=== PATIENT | female | born 1950 | race American Indian/Alaskan Native ===

== ENCOUNTER → 2023-07-21 12:09 | Outpatient (REF) | payer MEDICARE, OTHER, SELFPAY ==
[2023-07-21 13:08] LABS: % Basophils 0.3 % (0-2); % Eosinophils 0.9 % (0-6); % Immature Granulocytes 0.2 % (0-0.5); % Lymphocytes 25.9 % (20.5-51.1); % Monocytes 7.8 % (1.7-9.3); % Neutrophils 64.9 % (42.2-75.2); Absolute Eosinophils 0.1 10^3/uL (0-0.7); Absolute Lymphocytes 2.3 10^3/uL (1.2-3.4); Absolute Monocytes 0.7 10^3/uL (0.1-0.6); Absolute Neutrophils 5.7 10^3/uL (1.4-6.5); Hematocrit 37.8 % (37.0-47.0); Hemoglobin 12.3 g/dL (12.0-16.0); Mean Corp Hgb Conc. 32.5 g/dL (33.0-37.0); Mean Corpuscular Hgb 31.6 pg (27.0-31.0); Mean Corpuscular Volume 97.2 fL (81.0-99.0); Mean Platelet Volume 10.8 fL (7.4-10.4); Nucleated Red Blood Cells % 0 %; Platelet Count 282 10^3/uL (130-400); Red Blood Cell Count 3.89 10^6/uL (4.20-5.40); Red Cell Dist. Width 14.7 % (11.5-14.5); White Blood Cell Count 8.8 10^3/uL (4.8-10.8)
[2023-07-21 13:27] LABS: ALT (SGPT) 75 U/L (0-35); AST (SGOT) 65 U/L (14-36); Albumin 4.1 g/dl (3.5-5.0); Alkaline Phosphatase 136 U/L (38-126); Blood Urea Nitrogen 74 mg/dl (7-17); Calcium 9.6 mg/dl (8.4-10.2); Carbon Dioxide 23 mmol/L (22-30); Chloride 102 mmol/L (98-107); Glucose 122 mg/dl (70-99); HDL Cholesterol 30 mg/dl; LDL Cholesterol, Calculated 51 mg/dl; Potassium 4.1 mmol/L (3.5-5.1); Sodium 134 mmol/L (135-145); Total Bilirubin 0.6 mg/dl (0.2-1.3); Total Cholesterol 108 mg/dl (50-199); Total Protein 6.3 g/dl (6.3-8.2); Triglyceride 138 mg/dl (10-149); Very Low Density Lipoprotein 27 mg/dl (0-30); eGFR 18.78
[2023-07-21 13:43] LABS: Free T4 1.73 ng/dl (0.78-2.19)
[2023-07-21 13:57] LABS: TSH 0.79 uIU/ml (0.47-4.68)
[2023-07-21 14:07] LABS: Glycohemoglobin (HgbA1c) 6.1 % (4.0-5.6)
== END ==
LOC: REG 12:09
PROVIDERS: ATTENDING PHYSICIAN Physician Assistant; FAMILY PHYSICIAN Family Medicine
DX: E11.9 Type 2 diabetes mellitus without complications (principal); E03.9 Hypothyroidism, unspecified
CPT/HCPCS: 36415; 80053; 80061; 83036; 84439; 84443; 85025

== ENCOUNTER → 2024-01-04 11:14 | Outpatient (REF) | payer MEDICARE, OTHER, SELFPAY ==
[2024-01-04 12:11] LABS: % Basophils 0.3 % (0-2); % Eosinophils 1.2 % (0-6); % Immature Granulocytes 0.4 % (0-0.5); % Lymphocytes 29.8 % (20.5-51.1); % Monocytes 9.6 % (1.7-9.3); % Neutrophils 58.7 % (42.2-75.2); Absolute Eosinophils 0.1 10^3/uL (0-0.7); Absolute Lymphocytes 2.3 10^3/uL (1.2-3.4); Absolute Monocytes 0.7 10^3/uL (0.1-0.6); Absolute Neutrophils 4.5 10^3/uL (1.4-6.5); Hematocrit 34.5 % (37.0-47.0); Hemoglobin 11.3 g/dL (12.0-16.0); Mean Corp Hgb Conc. 32.8 g/dL (33.0-37.0); Mean Corpuscular Hgb 31.3 pg (27.0-31.0); Mean Corpuscular Volume 95.6 fL (81.0-99.0); Nucleated Red Blood Cells % 0 %; Platelet Count 249 10^3/uL (130-400); Red Blood Cell Count 3.61 10^6/uL (4.20-5.40); Red Cell Dist. Width 14.8 % (11.5-14.5); White Blood Cell Count 7.6 10^3/uL (4.8-10.8)
[2024-01-04 12:34] LABS: ALT (SGPT) 42 U/L (0-35); AST (SGOT) 40 U/L (14-36); Albumin 3.9 g/dl (3.5-5.0); Alkaline Phosphatase 117 U/L (38-126); Blood Urea Nitrogen 102 mg/dl (7-17); Carbon Dioxide 25 mmol/L (22-30); Chloride 101 mmol/L (98-107); Glucose 119 mg/dl (70-99); Potassium 4.9 mmol/L (3.5-5.1); Sodium 137 mmol/L (135-145); Total Bilirubin 0.5 mg/dl (0.2-1.3); Total Protein 5.8 g/dl (6.3-8.2); eGFR 16.48
[2024-01-04 12:46] LABS: Glycohemoglobin (HgbA1c) 5.4 % (4.0-5.6)
[2024-01-04 14:14] LABS: Free T4 1.68 ng/dl (0.78-2.19)
[2024-01-04 14:28] LABS: TSH 0.56 uIU/ml (0.47-4.68)
== END ==
LOC: REG 11:14
PROVIDERS: ATTENDING PHYSICIAN Physician Assistant; FAMILY PHYSICIAN Family Medicine
DX: E11.65 Type 2 diabetes mellitus with hyperglycemia (principal); Z79.4 Long term (current) use of insulin; E03.9 Hypothyroidism, unspecified
CPT/HCPCS: 36415; 80053; 83036; 84439; 84443; 85025

== ENCOUNTER 2024-02-10 08:11 | Emergency (ER) | payer MEDICARE, OTHER, SELFPAY ==
[2024-02-10 08:20] VITALS: BP 110/65
--- NOTE | 2024-02-10 08:41 | ED.GENMED ---
History of Present Illness
General
Chief Complaint: Skin Surface Trauma
Source: patient
Time Seen by Provider: 02/10/24 08:27
History of Present Illness
History of Present Illness:
74-year-old female with past medical history of atrial fibrillation, CHF, hypertension, hyperlipidemia, insulin-dependent diabetes presenting to the emergency department for evaluation after she raised her left forearm danced a door about 1 week
ago, had been treating the wound at home but early this morning awoke noticing bleeding from the small wound to the left forearm which she states is continued bleeding prompting her to come to the ER today. Patient is on Eliquis due to her A-fib.
She states she is not sure why the areas of bleeding. Denies any new injuries. Tetanus vaccine is up-to-date. Patient denies any redness, fevers or infectious symptoms or any other concerns presently.
Past History
Past History
ED Past Medical History: CHF, COPD, Fibromyalgia, HTN, Hypercholesterolemia, NIDDM, Renal failure, Hypothyroidism and Other (pulmonary htn, lupus (in remission as of september 2011), numbness and tingling of the extremities, home oxygen)
ED Past Surgical History: Orthopedic and Other (History of hysterectomy, bladder sling surgery, partial last, breast augmentation, D&C x3.)
Social History
Tobacco: Non-smoker
Alcohol: None
Drug: None
Personal:
Living: alone
Employment: Not employed
Family History
Family History: Other (She states both her father and her brother are alcoholics)
Review of Systems
Review of Systems
All Other Systems: ROS reviewed and negative except as documented in HPI and ROS
Phy Exam
Physical Exam
Physical Exam:
GENERAL: Alert , in no apparent distress
EYE: conjunctiva clear
Head: Normocephalic atraumatic
NECK: Supple,
ENT: mmm.
LUNGS: no acute respiratory distress
NEUROLOGICAL: Alert and oriented
SKIN: Warm and dry, small puncture wound to the dorsal surface of the left forearm. There is large dressing in place that was made up with paper towels, tape and gauze pads. This was removed and patient had a small blood blister formed. This was
irrigated and did start using but was controlled with light pressure. Extremities otherwise warm well-perfused and neurovascularly intact
MUSCULOSKELETAL: well perfused.
PSYCH: Normal and appropriate interaction.
Scores
Heart Failure Risk
Heart Failure Risk Score: Not Applicable
Heart Score for Chest Pain Patients
STEMI patient?: Not applicable
Withdrawal Assessment of Alcohol
Withdrawal Assessment Completed?: Not applicable
Course
Vital Signs
Initial and Last Documented VS:
Initial Vital Signs
Temp Pulse Resp BP Pulse Ox
97.4 F 98 16 110/65 97
02/10/24 08:20 02/10/24 08:20 02/10/24 08:20 02/10/24 08:20 02/10/24 08:20
Last Documented Vital Signs
Temp Pulse Resp BP Pulse Ox
97.4 F 98 16 110/65 97
02/10/24 08:20 02/10/24 08:20 02/10/24 08:20 02/10/24 08:20 02/10/24 08:20
MDM/Problems Addressed
Differential Diagnosis Includes:
Superficial abrasion/laceration, bleeding secondary to Eliquis, no current signs to suggest infectious etiology
MDM/Problems Addressed:
74-year-old female presenting to the emergency department for evaluation of a wound to the left forearm. Left forearm started bleeding/oozing overnight. Laceration from 1 week ago. No current signs of infection. Possible patient may have
scratched or braised the forearm while sleeping causing bleeding. Bleeding well-controlled with light pressure. I placed Gelfoam and a nonadherent gauze pad over this and wrapped with Kerlix and Carine wrap. Bleeding well-controlled. Advised
patient leave dressing in place. Attempt to not get wet. Information for wound care center provided. Otherwise stable for discharge home.
*Pulse Oximetry
Patient hypoxic: no
*Critical Care Note
Total Time (30-74mins, 75-104mins- exclusive of procedures): Not Applicable
ED Attending Note
-
Portions of this chart may have been created with voice recognition software.� Occasional wrong word or��sound alike� substitutions may have occurred due to the inherent limitations of voice recognition software.
Discharge Plan
Departure
Patient Disposition: Home (Routine Discharge)
Date of Disposition: 02/10/24
Time of Disposition: 08:41
Patient with high blood pressure during this ER visit?: No
Discharge Problem:
Wound of left upper extremity
Instructions: Wound Care (DC)
Prescriptions:
No Action
amitriptyline 50 MG tablet
100 mg PO HS
pantoprazole 40 MG tablet,delayed release (DR/EC)
40 mg PO BID@0600,1600
meclizine 25 MG tablet
25 mg PO TID PRN (Reason: dizziness)
levothyroxine 137 MCG tablet
137 mcg PO DAILY
acetaminophen 325 MG tablet
650 mg PO Q6HPRN PRN (Reason: mild pain,temp>101)
cyanocobalamin (vitamin B-12) [Vitamin B-12] 2,500 MCG tablet, sublingual
5,000 mcg sublingual DAILY
albuterol sulfate 1 PUFF HFA aerosol inhaler
2 puff inhalation R BID@0800,1600
spironolactone 12.5 MG tablet
50 mg PO BID
Eliquis 2.5 MG tablet
2.5 mg PO BID@0800,1700 Qty: 28 0RF
furosemide [Lasix] 80 MG tablet
80 mg PO TID
atorvastatin [Lipitor] 40 mg Tablet
40 mg PO DAILY
ondansetron 8 mg Tablet,Disintegrating
8 mg PO Q8H PRN (Reason: nausea)
acetaminophen 325 mg Tablet
650 mg PO Q4HPRN PRN (Reason: mild pain/BUSTILLOS/temp> 100.4F) Qty: 1 0RF
moxifloxacin 400 mg tablet
400 mg PO DAILY 7 Days Qty: 7 0RF
Rx Instructions:
first dose tonight
docusate sodium 100 MG capsule
100 mg PO BID@0800,1600 Qty: 1 0RF
Rx Instructions:
resume once diarrhea settles
insulin glargine [Basaglar KwikPen U-100 Insulin] 100 unit/mL (3 mL) Insulin Pen
35 unit SC BID Qty: 0 0RF
Rx Instructions:
Dose decreased as moxifloxacin can decrease your blood sugars. Call MD if any low sugars <110
Referrals:
Wound Care Center [Outside]
Discharge Date and Time
Print Language: PASHTO
[2024-02-10 08:53] VITALS: BMI 31.3
[2024-02-10 09:34] VITALS: BP 112/65
== END 2024-02-10 09:35 | disposition home or self-care (01) ==
LOC: EMR 08:11
PROVIDERS: EMERGENCY PHYSICIAN Emergency Medicine; FAMILY PHYSICIAN Family Medicine
DX: S51.802A Unspecified open wound of left forearm, initial encounter (principal); W22.09XA Striking against other stationary object, initial encounter; I13.0 Hypertensive heart and chronic kidney disease with heart failure and stage 1 through stage 4 chronic kidney disease, or unspecified chronic kidney disease; N18.9 Chronic kidney disease, unspecified; I50.9 Heart failure, unspecified; E11.22 Type 2 diabetes mellitus with diabetic chronic kidney disease; I48.91 Unspecified atrial fibrillation; Z79.01 Long term (current) use of anticoagulants
CPT/HCPCS: 99282

== ENCOUNTER → 2024-05-09 09:37 | Outpatient (REF) | payer MEDICARE, OTHER, SELFPAY ==
[2024-05-09 11:40] LABS: % Basophils 0.4 % (0-2); % Eosinophils 0.7 % (0-6); % Immature Granulocytes 0.4 % (0-0.5); % Lymphocytes 25.8 % (20.5-51.1); % Monocytes 7.3 % (1.7-9.3); % Neutrophils 65.4 % (42.2-75.2); Absolute Eosinophils 0.1 10^3/uL (0-0.7); Absolute Lymphocytes 2.2 10^3/uL (1.2-3.4); Absolute Monocytes 0.6 10^3/uL (0.1-0.6); Absolute Neutrophils 5.5 10^3/uL (1.4-6.5); Hematocrit 40.3 % (37.0-47.0); Hemoglobin 12.5 g/dL (12.0-16.0); Mean Corpuscular Hgb 31.3 pg (27.0-31.0); Mean Corpuscular Volume 100.8 fL (81.0-99.0); Mean Platelet Volume 10.4 fL (7.4-10.4); Nucleated Red Blood Cells % 0 %; Platelet Count 290 10^3/uL (130-400); Red Cell Dist. Width 14.5 % (11.5-14.5); White Blood Cell Count 8.4 10^3/uL (4.8-10.8)
[2024-05-09 11:59] LABS: ALT (SGPT) 100 U/L (0-35); AST (SGOT) 83 U/L (14-36); Albumin 4.3 g/dl (3.5-5.0); Alkaline Phosphatase 140 U/L (38-126); Blood Urea Nitrogen 44 mg/dl (7-17); Carbon Dioxide 26 mmol/L (22-30); Chloride 101 mmol/L (98-107); Free T4 1.49 ng/dl (0.78-2.19); Glucose 121 mg/dl (70-99); HDL Cholesterol 30 mg/dl; LDL Cholesterol, Calculated 67 mg/dl; Potassium 3.9 mmol/L (3.5-5.1); Sodium 144 mmol/L (135-145); Total Bilirubin 0.5 mg/dl (0.2-1.3); Total Cholesterol 118 mg/dl (50-199); Total Protein 6.7 g/dl (6.3-8.2); Triglyceride 107 mg/dl (10-149); Very Low Density Lipoprotein 21 mg/dl (0-30); eGFR 33.42
[2024-05-09 12:14] LABS: TSH 0.24 uIU/ml (0.47-4.68)
[2024-05-10 10:38] LABS: Glycohemoglobin (HgbA1c) 5.1 % (4.0-5.6)
== END ==
LOC: REG 09:37
PROVIDERS: ATTENDING PHYSICIAN Physician Assistant; FAMILY PHYSICIAN Family Medicine
DX: E11.65 Type 2 diabetes mellitus with hyperglycemia (principal); E03.9 Hypothyroidism, unspecified; N18.4 Chronic kidney disease, stage 4 (severe); D63.1 Anemia in chronic kidney disease; I50.32 Chronic diastolic (congestive) heart failure; I12.9 Hypertensive chronic kidney disease with stage 1 through stage 4 chronic kidney disease, or unspecified chronic kidney disease; E78.2 Mixed hyperlipidemia
CPT/HCPCS: 36415; 80053; 80061; 83036; 84439; 84443; 85025

== ENCOUNTER → 2024-07-26 09:44 | Outpatient (REF) | payer MEDICARE, OTHER, SELFPAY ==
[2024-07-26 10:39] LABS: % Basophils 0.3 % (0-2); % Eosinophils 0.5 % (0-6); % Immature Granulocytes 0.4 % (0-0.5); % Lymphocytes 17.8 % (20.5-51.1); Absolute Eosinophils 0.1 10^3/uL (0-0.7); Absolute Lymphocytes 1.7 10^3/uL (1.2-3.4); Absolute Monocytes 0.7 10^3/uL (0.1-0.6); Hematocrit 38.1 % (37.0-47.0); Hemoglobin 12.1 g/dL (12.0-16.0); Mean Corp Hgb Conc. 31.8 g/dL (33.0-37.0); Mean Corpuscular Hgb 28.9 pg (27.0-31.0); Mean Corpuscular Volume 90.9 fL (81.0-99.0); Mean Platelet Volume 10.4 fL (7.4-10.4); Nucleated Red Blood Cells % 0 %; Platelet Count 298 10^3/uL (130-400); Red Blood Cell Count 4.19 10^6/uL (4.20-5.40); Red Cell Dist. Width 15.6 % (11.5-14.5); White Blood Cell Count 9.5 10^3/uL (4.8-10.8)
[2024-07-26 10:50] LABS: ALT (SGPT) 34 U/L (0-35); AST (SGOT) 33 U/L (14-36); Albumin 3.8 g/dl (3.5-5.0); Alkaline Phosphatase 154 U/L (38-126); Blood Urea Nitrogen 45 mg/dl (7-17); Calcium 9.3 mg/dl (8.4-10.2); Carbon Dioxide 29 mmol/L (22-30); Chloride 98 mmol/L (98-107); Glucose 132 mg/dl (70-99); Potassium 3.7 mmol/L (3.5-5.1); Sodium 137 mmol/L (135-145); Total Bilirubin 0.7 mg/dl (0.2-1.3); eGFR 31.08
[2024-07-26 11:05] LABS: Free T4 1.85 ng/dl (0.78-2.19)
[2024-07-26 12:17] LABS: Glycohemoglobin (HgbA1c) 5.7 % (4.0-5.6)
== END ==
LOC: REG 09:44
PROVIDERS: ATTENDING PHYSICIAN Physician Assistant; FAMILY PHYSICIAN Family Medicine; REFERRING PHYSICIAN Specialist
DX: E11.65 Type 2 diabetes mellitus with hyperglycemia (principal); E03.9 Hypothyroidism, unspecified
CPT/HCPCS: 36415; 80053; 83036; 84439; 84443; 85025

== ENCOUNTER → 2024-09-19 09:29 | Outpatient (REF) | payer MEDICARE, OTHER, SELFPAY ==
[2024-09-19 10:17] LABS: % Basophils 0.4 % (0-2); % Eosinophils 0.5 % (0-6); % Immature Granulocytes 0.5 % (0-0.5); % Lymphocytes 21.9 % (20.5-51.1); % Monocytes 8.8 % (1.7-9.3); % Neutrophils 67.9 % (42.2-75.2); Absolute Eosinophils 0.1 10^3/uL (0-0.7); Absolute Immature Granulocytes 0.1 10^3/uL (0-0.05); Absolute Lymphocytes 2.1 10^3/uL (1.2-3.4); Absolute Monocytes 0.8 10^3/uL (0.1-0.6); Absolute Neutrophils 6.4 10^3/uL (1.4-6.5); Hematocrit 36.3 % (37.0-47.0); Hemoglobin 11.6 g/dL (12.0-16.0); Mean Corpuscular Hgb 28.3 pg (27.0-31.0); Mean Corpuscular Volume 88.5 fL (81.0-99.0); Mean Platelet Volume 10.3 fL (7.4-10.4); Nucleated Red Blood Cells % 0 %; Platelet Count 268 10^3/uL (130-400); Red Cell Dist. Width 18.2 % (11.5-14.5); White Blood Cell Count 9.4 10^3/uL (4.8-10.8)
[2024-09-19 11:02] LABS: NT-proBNP 129 pg/ml
[2024-09-19 11:06] LABS: ALT (SGPT) 50 U/L (0-35); AST (SGOT) 43 U/L (14-36); Alkaline Phosphatase 138 U/L (38-126); Blood Urea Nitrogen 39 mg/dl (7-17); Calcium 9.8 mg/dl (8.4-10.2); Carbon Dioxide 28 mmol/L (22-30); Chloride 100 mmol/L (98-107); Glucose 126 mg/dl (70-99); Phosphorus 2.9 mg/dl (2.5-4.5); Potassium 3.7 mmol/L (3.5-5.1); Sodium 141 mmol/L (135-145); Total Bilirubin 0.8 mg/dl (0.2-1.3); Total Protein 5.9 g/dl (6.3-8.2); eGFR 36.12
[2024-09-19 11:10] LABS: Free T4 1.57 ng/dl (0.78-2.19)
[2024-09-19 11:33] LABS: TSH 0.52 uIU/ml (0.47-4.68)
[2024-09-20 10:36] LABS: Intact PTH 240.2 pg/ml (13.6-85.8)
== END ==
LOC: REG 09:29
PROVIDERS: ATTENDING PHYSICIAN Physician Assistant; FAMILY PHYSICIAN Family Medicine; REFERRING PHYSICIAN Specialist
DX: E11.65 Type 2 diabetes mellitus with hyperglycemia (principal); E03.9 Hypothyroidism, unspecified; N18.4 Chronic kidney disease, stage 4 (severe); I10 Essential (primary) hypertension; I50.32 Chronic diastolic (congestive) heart failure
CPT/HCPCS: 36415; 80053; 83036; 83880; 83970; 84100; 84439; 84443; 85025

== ENCOUNTER → 2024-10-04 09:03 | Outpatient (REF) | payer MEDICARE, OTHER, SELFPAY | LOC: RAD 09:03 | PROVIDERS: ATTENDING PHYSICIAN Family Medicine; FAMILY PHYSICIAN Family Medicine | DX: M25.552 Pain in left hip (principal) | CPT/HCPCS: 72110; 73502 ==

== ENCOUNTER → 2025-02-01 13:42 | Outpatient (REF) | payer MEDICARE, OTHER, SELFPAY ==
[2025-02-01 14:32] LABS: Hematocrit 39.8 % (37.0-47.0); Hemoglobin 12.4 g/dL (12.0-16.0); Mean Corp Hgb Conc. 31.2 g/dL (33.0-37.0); Mean Corpuscular Volume 87.3 fL (81.0-99.0); Nucleated Red Blood Cells % 0 %; Platelet Count 344 10^3/uL (130-400); Red Cell Dist. Width 18.0 % (11.5-14.5)
[2025-02-01 15:09] LABS: ALT (SGPT) 49 U/L (0-35); AST (SGOT) 44 U/L (14-36); Albumin 4.3 g/dl (3.5-5.0); Alkaline Phosphatase 159 U/L (38-126); Blood Urea Nitrogen 41 mg/dl (7-17); Calcium 10.1 mg/dl (8.4-10.2); Carbon Dioxide 28 mmol/L (22-30); Chloride 99 mmol/L (98-107); Glucose 102 mg/dl (70-99); Potassium 4.0 mmol/L (3.5-5.1); Sodium 137 mmol/L (135-145); Total Protein 6.4 g/dl (6.3-8.2); eGFR 25.41
[2025-02-01 15:38] LABS: TSH 0.89 uIU/ml (0.47-4.68)
[2025-02-02 09:59] LABS: Glycohemoglobin (HgbA1c) 6.0 % (4.0-5.6)
== END ==
LOC: REG 13:42
PROVIDERS: ATTENDING PHYSICIAN Physician Assistant; FAMILY PHYSICIAN Family Medicine
DX: E11.65 Type 2 diabetes mellitus with hyperglycemia (principal); E03.9 Hypothyroidism, unspecified
CPT/HCPCS: 36415; 80053; 83036; 84439; 84443; 85025

== ENCOUNTER → 2025-06-05 09:14 | Outpatient (REF) | payer MEDICARE, OTHER, SELFPAY ==
[2025-06-05 10:48] LABS: Hematocrit 39.0 % (37.0-47.0); Hemoglobin 11.9 g/dL (12.0-16.0); Mean Corp Hgb Conc. 30.5 g/dL (33.0-37.0); Mean Corpuscular Volume 87.4 fL (81.0-99.0); Nucleated Red Blood Cells % 0 %; Platelet Count 382 10^3/uL (130-400); Red Cell Dist. Width 17.2 % (11.5-14.5)
[2025-06-05 11:14] LABS: ALT (SGPT) 74 U/L (0-35); AST (SGOT) 74 U/L (14-36); Albumin 4.2 g/dl (3.5-5.0); Alkaline Phosphatase 147 U/L (38-126); Blood Urea Nitrogen 38 mg/dl (7-17); Calcium 9.8 mg/dl (8.4-10.2); Carbon Dioxide 27 mmol/L (22-30); Chloride 100 mmol/L (98-107); Glucose 122 mg/dl (70-99); Potassium 3.6 mmol/L (3.5-5.1); Sodium 138 mmol/L (135-145); Total Protein 6.4 g/dl (6.3-8.2); eGFR 33.22
[2025-06-05 11:43] LABS: TSH 0.53 uIU/ml (0.47-4.68)
[2025-06-05 12:04] LABS: Glycohemoglobin (HgbA1c) 6.0 % (4.0-5.9)
== END ==
LOC: REG 09:14
PROVIDERS: ATTENDING PHYSICIAN Physician Assistant
DX: E11.65 Type 2 diabetes mellitus with hyperglycemia (principal); E03.9 Hypothyroidism, unspecified
CPT/HCPCS: 36415; 80053; 83036; 84439; 84443; 85025